=== PATIENT | female | born 1955 | race Caucasian/White ===

== ENCOUNTER 2020-05-13 17:42 | Outpatient (RCR) | payer MEDICARE, SELFPAY ==
[2020-05-13] MEDS: COVID-19 VACC, MRNA(PFIZER)/PF 30 MCG/0.3 ML SYRINGE IM (16:20)
[2020-06-03] MEDS: COVID-19 VACC, MRNA(PFIZER)/PF 30 MCG/0.3 ML SYRINGE IM (15:51)
== END 2020-08-10 23:59 ==
LOC: IMMUN 17:42
PROVIDERS: Visit Provider Family Medicine
DX: Z23 Encounter for immunization (principal)
CPT/HCPCS: 0001A; 0002A; 91300